=== PATIENT | male | born 1990 | race Caucasian/White ===

== ENCOUNTER 2020-12-04 19:29 | Emergency (ER) | payer OTHER, SELFPAY ==
[2020-12-04] VITALS (8 sets, daily range): BP systolic 119–154; BP diastolic 63–88; PULSE 72–101; RESP 17–25; TEMP 36.6–36.8; O2SAT 93–97; BMI 37.5
--- NOTE | 2020-12-04 19:19 | ECG_ITS ---
APPROVED REPORT Exam: Resting ECG HR:102 bpm ECG Measurements Heart Rate 102 AXES NV 134 P 50 QRSd 78 QRS 65 QT 358 T 74 QTc 466 Conclusion Sinus tachycardia Nonspecific T wave abnormality Abnormal ECG Electronically signed by : Jordi Trimble, 12/06/2020 17:51:21
--- NOTE | 2020-12-04 19:43 | XR_ITS ---
PROCEDURE INFORMATION: Exam: XR Chest Exam date and time: 12/04/2020 7:43 PM Age: 30 years old Clinical indication: Chest wall pain; Patient HX: Chest pain/tightness---. Non-smoker TECHNIQUE: Imaging protocol: XR of the chest. Views: 2 views. COMPARISON: No relevant prior studies available. FINDINGS: Lungs: Unremarkable. No consolidation. Pleural spaces: Unremarkable. No pleural effusion. No pneumothorax. Heart/Mediastinum: Unremarkable. No cardiomegaly. Bones/joints: Unremarkable. IMPRESSION: No acute findings.
[2020-12-04 19:55] LABS: Basophils # 0.1 K/mm3 (0-0.2); Basophils % 0.8 % (0.1-2.0); Eosinophils # 0.1 K/mm3 (0.0-0.4); Eosinophils % 2.3 % (0.1-12.0); Hematocrit 42.4 % (42.0-52.0); Hemoglobin 14.8 g/dL (14.1-18.0); Lymphocytes # 1.2 K/mm3 (0.7-4.5); Lymphocytes % 18.6 % (10-50); Mean Corpuscular Hemoglobin 29.3 pg (27.0-31.2); Mean Corpuscular Volume 83.8 fl (80-94); Mean Platelet Volume 9.5 fl (7.4-10.4); Monocytes # 0.3 K/mm3 (0.1-1.0); Monocytes % 5.2 % (1.7-9.3); Neutrophils # 4.7 K/mm3 (1.8-7.8); Neutrophils % 73.1 % (37.0-80.0); Platelet Count 126 K/mm3 (142-424); Red Blood Count 5.06 M/mm3 (4.60-6.20); Red Cell Distribution Width 14.4 % (11.5-17.5); White Blood Count 6.4 K/mm3 (4.8-10.8)
[2020-12-04 20:00] LABS: Alanine Aminotransferase 104 U/L (12-78); Albumin Level 4.6 g/dl (3.5-5.0); Alkaline Phosphatase 60 U/L (38-126); Anion Gap 10.9 mEq/L (5-15); Aspartate Amino Transferase 76 U/L (17-59); Bilirubin,Direct 0.4 mg/dl (0.0-0.4); Bilirubin,Indirect 0.6 mg/dL (0.0-0.9); Bilirubin,Unconjugated 0.5 mg/dL (0.0-1.1); Blood Urea Nitrogen 14 mg/dl (9-20); Calcium 8.9 mg/dl (8.4-10.2); Carbon Dioxide 28 mmol/L (22.0-30.0); Chloride 104 mmol/L (98-107); Creatinine Clearance Estimated 151 mL/min (50-200); Estimated Glomerular Filt Rate 79 ml/min (>60); GFR (African American) 95 ML/MIN (>60); Glucose 103 mg/dl (74-100); Potassium 3.9 mmoL/L (3.5-5.1); Sodium 139 mmol/L (136-145); Total Protein,Serum 7.5 g/dl (6.3-8.2)
--- NOTE | 2020-12-04 20:03 | ECG_ITS ---
APPROVED REPORT Exam: Resting ECG HR:93 bpm ECG Measurements Heart Rate 93 AXES NC 154 P 68 QRSd 86 QRS 38 QT 342 T 75 QTc 425 Conclusion Normal sinus rhythm Normal ECG Electronically signed by : Jordi Trimble, 12/05/2020 08:17:24
[2020-12-04 20:06] LABS: C-Reactive Protein 6.9 mg/L (0-4)
--- NOTE | 2020-12-04 20:12 | [facility].EDCP ---
ED Disposition Clinical Impression: Atypical chest pain Disposition: Home, Self-Care Condition on Discharge: Good Instructions: DI for Atypical Chest Pain Additional Instructions: see pcp for follow up and recheck in ed if needed Referrals: Sherrell Alfaro APRN [Primary Care Provider] - - Critical Care Critical Care Time: No Attestation: On 12/04/20, the high probability of a clinically significant, sudden or life threatening deterioration of the following system(s) required my full and direct attention, intervention and personal management. The time I documented below is in addition to time spent performing reported procedures but includes the following listed in this critical care notation. Medical Decision Making - Medical Records Medical records reviewed: Yes: I reviewed the patient's medical records. - Scott Inquiry Pt receiving controlled substance: No Vital Signs: 12/04/20 19:30 12/04/20 20:31 12/04/20 21:00 Temperature 98 F Temperature Source Oral Pulse Rate 88 91 H Pulse Rate [Left Radial] 101 H Respiratory Rate 24 21 25 H Blood Pressure 144/77 H 154/88 H Blood Pressure [Right Arm] 148/84 H Blood Pressure Mean [Right Arm] 105 Blood Pressure Source [Right Arm] Automatic Cuff Blood Pressure Position [Right Arm] Sitting 02 Sat by Pulse Oximetry 96 97 96 Oxygen Delivery Method Room Air Room Air 12/04/20 21:48 12/04/20 22:10 12/04/20 22:30 Temperature Temperature Source Pulse Rate 84 72 73 Pulse Rate [Left Radial] Respiratory Rate 23 21 18 Blood Pressure 138/83 131/63 129/75 Blood Pressure [Right Arm] Blood Pressure Mean [Right Arm] Blood Pressure Source [Right Arm] Blood Pressure Position [Right Arm] 02 Sat by Pulse Oximetry 93 L 96 96 Oxygen Delivery Method - Lab Data Lab results reviewed: Yes: I reviewed the patient's lab results. Lab Results 12/04/20 19:32: WBC 6.4, RBC 5.06, Hgb 14.8, Hct 42.4, MCV 83.8, MCH 29.3, MCHC 35.0, RDW 14.4, Plt Count 126 L, MPV 9.5, Neut % (Auto) 73.1, Lymph % (Auto) 18.6, [place] % (Auto) 5.2, Eos % (Auto) 2.3, Baso % (Auto) 0.8, Neut # (Auto) 4.7, Lymph # (Auto) 1.2, [place] # (Auto) 0.3, Eos # (Auto) 0.1, Baso # (Auto) 0.1, ESR 13 12/04/20 19:32: Sodium 139, Potassium 3.9, Chloride 104, Carbon Dioxide 28, Anion Gap 10.9, BUN 14, Creatinine 1.10, Estimated Creat Clear 151, Estimated GFR 79, Est GFR ( Amer) 95, Glucose 103 H, Calcium 8.9, Total Bilirubin 1.0, Direct Bilirubin 0.4, Conjugated Bilirubin 0.0, Indirect Bilirubin 0.6, Unconjugated Bilirubin 0.5, AST 76 H, ALT 104 H, Alkaline Phosphatase 60, Troponin I < 0.01, C-Reactive Protein 6.9 H, Total Protein 7.5, Albumin 4.6, Procalcitonin 0.190 12/04/20 22:48: Troponin I < 0.01 Result diagrams: 12/04/20 19:32 12/04/20 19:32 Orders (Tests/Meds): ED MEDICATIONS Generic Name Dose Route Start Last Admin Trade Name Freq PRN Reason Stop Dose Admin Lactated Ringer's 1,000 mls @ 999 mls/hr 12/04/20 19:45 12/04/20 19:45 Lactated Ringer's 1000 Ml Bag IV 12/04/20 20:45 999 mls/hr .Q1H1M GIDEON Administration Discontinued Medications Generic Name Dose Route Start Last Admin Trade Name Freq PRN Reason Stop Dose Admin Aspirin 324 mg 12/04/20 19:46 12/04/20 19:30 Aspirin 81mg Chewable Tablet PO 12/04/20 19:47 324 mg ONCE ONE Administration Iopamidol 70 ml 12/04/20 22:00 12/04/20 22:02 Iopamidol-370 (76%);100ml Bottle IV 12/04/20 22:01 70 ml ONCE ONE Administration Ketorolac Tromethamine 30 mg 12/04/20 19:46 12/04/20 19:53 Ketorolac 30mg/Ml Vial IV 12/04/20 19:47 30 mg ONCE ONE Administration Ondansetron HCl 4 mg 12/04/20 19:46 12/04/20 19:53 Ondansetron 4mg/2ml Vial IV 12/04/20 19:47 4 mg ONCE ONE Administration Sodium Chloride 50 ml 12/04/20 22:00 12/04/20 22:01 0.9 % Sodium Chloride 50 Ml Vial IV 12/04/20 22:01 50 ml ONCE ONE Administration Sodium Chloride 10 ml 12/04/20 22:00 06
[2020-12-04 20:16] LABS: Troponin I < 0.01 ng/ml (0.00-0.034)
[2020-12-04 20:24] LABS: Erythrocyte Sedimentation Rate 13 mm/hr (0-15)
--- NOTE | 2020-12-04 21:13 | CT_ITS ---
PROCEDURE INFORMATION: Exam: CTA Chest With Contrast Exam date and time: 12/04/2020 9:13 PM Age: 30 years old Clinical indication: Angina pectoris; Patient HX: SOA and chest pains; Additional info: Sob/chest pain TECHNIQUE: Imaging protocol: Computed tomographic angiography of the chest with contrast. 3D rendering (Not supervised by radiologist): MIP and/or 3D reconstructed images were created by the technologist. Radiation optimization: All CT scans at this facility use at least one of these dose optimization techniques: automated exposure control; mA and/or kV adjustment per patient size (includes targeted exams where dose is matched to clinical indication); or iterative reconstruction. Contrast material: ISOVUE 370; Contrast volume: 70 ml; Contrast route: INTRAVENOUS (IV); COMPARISON: CR XR CHEST 2V 12/04/2020 7:52 PM FINDINGS: Pulmonary arteries: Bolus timing is insufficient for definitive exclusion of small peripheral pulmonary emboli. No evidence of pulmonary embolism as imaged. Aorta: No evidence of aortic dissection. Lungs: Unremarkable. No consolidation. No masses. Pleural spaces: Unremarkable. No pneumothorax. No pleural effusion. Heart: Unremarkable. No cardiomegaly. No pericardial effusion. Lymph nodes: Unremarkable. No enlarged lymph nodes. Liver: There is a diffuse decrease in hepatic parenchymal density, consistent with mild fatty infiltration. Bones/joints: Unremarkable. No acute fracture. Soft tissues: Unremarkable. IMPRESSION: 1. Bolus timing is insufficient for definitive exclusion of small peripheral pulmonary emboli. 2. No evidence of pulmonary embolism as imaged. 3. No evidence of aortic dissection.
[2020-12-04 23:17] LABS: Troponin I < 0.01 ng/ml (0.00-0.034)
== END 2020-12-04 23:43 | disposition home or self-care (01) ==
PROVIDERS: Emergency Provider Emergency Medicine; PCP Nurse Practitioner
DX: R07.89 Other chest pain (principal); R11.0 Nausea; M25.511 Pain in right shoulder
CPT/HCPCS: 71046; 71275; 80048; 80076; 84145; 84484; 85025; 85651; 86140; 93005; 96365; 96375; 99282; J2405; Q9967

== ENCOUNTER → 2021-08-01 13:29 | Outpatient (CLI) | payer SELFPAY ==
--- NOTE | 2021-08-01 13:42 | US_ITS ---
FINAL REPORT TECHNIQUE: Ultrasound images of the testicles were obtained bilaterally. Color Doppler images were obtained. CLINICAL HISTORY: INFLAMMATORY DISORDER FINDINGS: The right testicle measures 2.2 x 4.1 x 3.6 cm. The left testicle measures 2.5 x 4.1 x 2.8 cm. Arterial flow is identified bilaterally. No intra testicular masses are identified. There is a small right hydrocele and a moderate left hydrocele. There is a 1.1 cm right epididymal cyst. IMPRESSION: Small right and moderate left hydrocele. Right epididymal cyst. Reviewed, Interpreted and Dictated by Marcio Helton III, MD Transcribed by Nicole Ndiaye Authenticated by Marcio Helton III, MD on 08/01/2021 03:23:48 PM [facility]
== END ==
PROVIDERS: PCP Nurse Practitioner; Visit Provider Nurse Practitioner
DX: N49.2 Inflammatory disorders of scrotum (principal)
CPT/HCPCS: 76870

== ENCOUNTER 2021-08-04 20:20 | Emergency (ER) | payer SELFPAY ==
[2021-08-04 20:21] VITALS: BP 144/89; PULSE 85; RESP 16; TEMP 36.7; O2SAT 98; BMI 37.5
[2021-08-04 20:49] LABS: Microscopic, Urine URINE MICROSCOPIC (MICROSCOPIC)
[2021-08-04 20:51] LABS: Appearance,Urine CLEAR (Clear); Bilirubin,Urine Negative (Negative); Blood, Urine Negative (Negative); Color,Urine YELLOW (Yellow); Glucose,Urine (UA) Negative (Negative); Ketones,Urine Negative (Negative); Leukocyte Esterase,Urine Negative (Negative); Nitrate,Urine Negative (Negative); PH,Urine 6.5 (5.0-8.5); Protein,Urine Negative (Negative); Urobilinogen,Urine 0.2 EU/dl (0.2)
[2021-08-04 20:59] LABS: Bacteria,Urine Trace /lpf; Squamous Epithelial Cell,Urine Occasional #/hpf (0-5); WBC,Urine Occasional #/hpf (0-3)
--- NOTE | 2021-08-04 21:12 | US_ITS ---
PROCEDURE INFORMATION: Exam: US Scrotum Exam date and time: 08/04/2021 9:12 PM Age: 30 years old Clinical indication: Swelling, testicles or scrotum TECHNIQUE: Imaging protocol: Real-time ultrasound of the scrotum and contents with color Doppler and image documentation. COMPARISON: US TESTICULAR 08/01/2021 1:52 PM FINDINGS: Right testicle: Right testicle homogeneous in echotexture, measuring 4.5 x 3.7 x 1.9 cm. Normal right testicular vascularity. Left testicle: Left testicle homogeneous in echotexture, measuring 4.6 x 2.4 x 2.9 cm. Normal left testicular vascularity. Epididymides: 12 mm simple right epididymal head cyst. Scrotum: Moderate-sized left hydrocele. IMPRESSION: 1. No acute abnormality. 2. Moderate-sized left hydrocele, similar to comparison study.
--- NOTE | 2021-08-04 22:05 | [facility].EDGENADL ---
ED Disposition Clinical Impression: Hydrocele in adult Disposition: Home, Self-Care Condition on Discharge: Good Instructions: DI for Urinary Tract Infection (UTI), DI for Urinary Tract Infection in Children Additional Instructions: Please follow-up with a urologist, we have sent a referral. Referrals: Sherrell Alfaro APRN [Primary Care Provider] - Duran Carlton MD [Staff Physician] - - Critical Care Critical Care Time: No Attestation: On 08/04/21, the high probability of a clinically significant, sudden or life threatening deterioration of the following system(s) required my full and direct attention, intervention and personal management. The time I documented below is in addition to time spent performing reported procedures but includes the following listed in this critical care notation. Medical Decision Making - Medical Records Medical records reviewed: Yes: I reviewed the patient's medical records. - Scott Inquiry Pt receiving controlled substance: No Vital Signs: 08/04/21 20:21 Temperature 98.1 F Temperature Source Oral Pulse Rate [Right Radial] 85 Respiratory Rate 16 Blood Pressure [Right Arm] 144/89 H Blood Pressure Mean [Right Arm] 107 Blood Pressure Source [Right Arm] Automatic Cuff Blood Pressure Position [Right Arm] Sitting 02 Sat by Pulse Oximetry 98 Oxygen Delivery Method Room Air - Lab Data Lab Results 08/04/21 20:27: Urine Color Yellow, Urine Appearance Clear, Urine pH 6.5, Ur Specific [place] 1.020, Urine Protein Negative, Urine Glucose (UA) Negative, Urine Ketones Negative, Urine Blood Negative, Urine Nitrate Negative, Urine Bilirubin Negative, Urine Urobilinogen 0.2, Ur Leukocyte Esterase Negative, Urine RBC None, Urine WBC Occasional, Ur Squamous Epith Cells Occasional, Urine Bacteria Trace Orders (Tests/Meds): ED MEDICATIONS Discontinued Medications Generic Name Dose Route Start Last Admin Trade Name Freq PRN Reason Stop Dose Admin Ibuprofen 600 mg 08/04/21 20:45 08/04/21 20:58 Ibuprofen 600 Mg Tablet PO 08/04/21 20:46 600 mg ONCE ONE Administration ORDERS Category Date Time Status Urine Culture Stat Micro 08/04/21 20:27 Received Medical Decision Narrative: Patient is a 30-year-old male presents the ED today for further evaluation of left-sided scrotal swelling. Patient is well-appearing on initial evaluation, no other distress mild hypertension on vital signs but otherwise within normal limits. We will order an ultrasound of the patient's quadrant for further evaluation as he is having right-sided testicular pain, although cremasteric reflex is normal, testicles not significantly tender, and I have low concern for testicular torsion however given this patient is a young reproductive age male we will extensively work this up. I have also ordered a urinalysis, and a urine gonorrhea chlamydia and a urine cultur. Patient is on antibiotics from his primary care office just started this today, I have instructed him to continue these antibiotics at home. Patient given 600 mg oral ibuprofen for pain control as this has been successful for him in the past. Patient reassessed remains well-appearing urinalysis with no evidence of acute UTI, regardless patient is on treatment, have ordered urine culture and other urine studies which will take several days to come back, patient's primary office or urologist can follow-up these results. Patient discharged in stable condition, advised to take ibuprofen every 6 hours at home for pain control, given return precautions return to the ED with any new or worsening symptoms and is verbalized understanding with this plan. General Adult HPI - General Chief complaint: Urogenital-Male Stated complaint: PAIN AND SWELLING IN PRIVATE AREA Time Seen by Provider: 08/04/21 20:31 Mode of Arrival: Ambulatory Limitations: No Limitations Description of Symptoms (Recalled from ER Triage Doc. by RN): Pt has known bilateral hy
[2021-08-04 22:22] VITALS: BP 117/70; PULSE 84; RESP 16; TEMP 36.7; O2SAT 98
[2021-08-07 22:08] LABS: Neisseria gonorrhoeae, NAA Negative (Negative)
== END 2021-08-04 22:30 | disposition home or self-care (01) ==
PROVIDERS: Emergency Provider Student in an Organized Health Care Education/Training Program; PCP Nurse Practitioner
DX: N43.3 Hydrocele, unspecified (principal)
CPT/HCPCS: 76870; 81001; 87086; 87491; 87591; 99282

== ENCOUNTER 2023-10-15 20:31 | Outpatient (CLI) | payer SELFPAY ==
[2023-10-15 20:59] LABS: Basophils # 0.1 K/mm3 (0-0.2); Basophils % 1.4 % (0.1-2.0); Eosinophils # 0.2 K/mm3 (0.0-0.4); Eosinophils % 4.2 % (0.1-12.0); Hematocrit 42.3 % (42.0-52.0); Hemoglobin 14.4 g/dL (14.1-18.0); Lymphocytes # 2.5 K/mm3 (0.7-4.5); Lymphocytes % 43.6 % (10-50); Mean Corpuscular Hemoglobin 29.4 pg (27.0-31.2); Mean Corpuscular Volume 86.5 fl (80-94); Monocytes # 0.3 K/mm3 (0.1-1.0); Neutrophils # 2.7 K/mm3 (1.8-7.8); Neutrophils % 45.7 % (37.0-80.0); Platelet Count 109 K/mm3 (142-424); Red Blood Count 4.89 M/mm3 (4.60-6.20); Red Cell Distribution Width 14.6 % (11.5-17.5); White Blood Count 5.8 K/mm3 (4.8-10.8)
[2023-10-15 21:12] LABS: Chloride 106 mmol/L (98-107); Potassium 3.7 mmoL/L (3.5-5.1); Sodium 140 mmol/L (136-145)
[2023-10-15 21:14] LABS: Alanine Aminotransferase 77 U/L (12-78); Aspartate Amino Transferase 66 U/L (17-59); Blood Urea Nitrogen 12 mg/dl (9-20); Estimated Glomerular Filt Rate 78 ml/min (>60); GFR (African American) 94 ML/MIN (>60)
[2023-10-15 21:15] LABS: Albumin Level 3.9 g/dl (3.5-5.0); Albumin/Globulin Ratio 1.5 (1.1-1.8); Alkaline Phosphatase 81 U/L (38-126); Anion Gap 9.7 mEq/L (5-15); Bilirubin,Total 0.5 mg/dl (0.2-1.3); Calcium 9.3 mg/dl (8.4-10.2); Carbon Dioxide 28 mmol/L (22.0-30.0); Chol/HDL Ratio 6.4 (1-3.5); Cholesterol 179 mg/dl (140-200); Globulin 2.6 g/dL (1.3-3.2); Glucose 126 mg/dl (74-100); HDL Cholesterol 28 mg/dl (40-60); Total Protein,Serum 6.5 g/dl (6.3-8.2); Triglycerides 159 mg/dl (30-150); VLDL Cholesterol 32 mg/dL (0-40)
[2023-10-15 21:26] LABS: Direct LDL Cholesterol 112.62 mg/dL (100-129)
== END 2023-10-15 23:59 | disposition home or self-care (01) ==
LOC: LAB 20:32
PROVIDERS: PCP Nurse Practitioner; Visit Provider Nurse Practitioner
DX: R53.83 Other fatigue (principal); E78.5 Hyperlipidemia, unspecified
CPT/HCPCS: 36415; 80053; 80061; 85025